=== PATIENT | male | born 1965 | race Caucasian/White ===

== ENCOUNTER 2017-05-02 19:00 | Emergency (ER) | payer MEDICARE ==
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
[2017-05-02 23:44] VITALS: BP 139/88; PULSE 82; RESP 18; TEMP 98.1
== END 2017-05-02 23:44 | disposition home or self-care (01) ==
LOC: EC 19:00
DX: F41.0 Panic disorder [episodic paroxysmal anxiety] (principal); F32.9 Major depressive disorder, single episode, unspecified; Z88.0 Allergy status to penicillin; Z88.2 Allergy status to sulfonamides; Z88.8 Allergy status to other drugs, medicaments and biological substances; Z79.899 Other long term (current) drug therapy
CPT/HCPCS: 80306; 82075; 99285

== ENCOUNTER 2017-10-05 20:24 | Emergency (ER) | payer MEDICARE ==
--- NOTE | 2017-10-05 20:26 | ED ---
General Adult HPI - General Stated complaint: Syncope Time Seen by Provider: 10/05/17 20:25 - Related Data Home Medications Medication Instructions Recorded Confirmed DULoxetine HCL [Cymbalta] 30 mg PO HS 05/02/17 05/02/17 DULoxetine HCL [Cymbalta] 60 mg PO QAM 05/02/17 05/02/17 clonazePAM [KlonoPIN] 1 mg PO DAILY PRN 05/02/17 05/02/17 clonazePAM [KlonoPIN] 1 mg PO TID 05/02/17 05/02/17 Allergies Allergy/AdvReac Type Severity Reaction Status Date / Time citalopram [From Celexa] Allergy Swelling Verified 05/02/17 19:38 Penicillins Allergy Anaphylaxis Verified 05/02/17 19:38 Sulfa (Sulfonamide Allergy Anaphylaxis Verified 05/02/17 19:38 Antibiotics) olanzapine [From Zyprexa] AdvReac Constipatio Verified 05/02/17 19:38 n Review of Systems ROS Statement: Those systems with pertinent positive or pertinent negative responses have been documented in the HPI. ROS Other: All systems not noted in ROS Statement are negative. Past Medical History Additional Past Medical History / Comment(s): insomnia History of Any Multi-Drug Resistant Organisms: None Reported Additional Past Surgical History / Comment(s): wisdom teeth Past Psychological History: Anxiety, Depression, PTSD Smoking Status: Never smoker Past Alcohol Use History: Rare Past Drug Use History: None Reported Disposition Referrals: Genaro Bedolla MD [Primary Care Provider] - 1-2 days
--- NOTE | 2017-10-05 21:33 | XR ---
EXAMINATION TYPE: XR chest 1V portable DATE OF EXAM: 10/05/2017 COMPARISON: NONE HISTORY: Syncope TECHNIQUE: Single frontal view of the chest is obtained. FINDINGS: Heart and mediastinum are normal. There is small linear density at the left lung base. Yaron gs are clear of consolidation. There is no heart failure. IMPRESSION: Subsegmental atelectasis at the left lung base. Normal heart.
[2017-10-05 21:43] LABS: Basophils % (A) 1 %; CH 31.8; CHCM 34.9; Eosinophils # (A) 0.1 k/uL (0-0.7); Eosinophils % (A) 3 %; HCT 43.4 % (39.0-53.0); HDW 3.07; HGB 14.4 gm/dL (13.0-17.5); Luc # (Auto) 0.05; Luc % (Auto) 1; Lymphocytes # (A) 1.1 k/uL (1.0-4.8); Lymphocytes % (A) 24 %; MCH 30.5 pg (25.0-35.0); MCHC 33.2 g/dL (31.0-37.0); MCV 91.8 fL (80.0-100.0); Mean Platelet Volume 7.2; Monocytes # (A) 0.3 k/uL (0-1.0); Monocytes % (A) 7 %; Neutrophils # (A) 2.9 k/uL (1.3-7.7); Neutrophils % (A) 65 %; RBC 4.73 m/uL (4.30-5.90); RDW 15.5 % (11.5-15.5); WBC 4.5 k/uL (3.8-10.6); WBC (Perox) 4.36
[2017-10-05 21:45] LABS: ALT 36 U/L (21-72); AST 19 U/L (17-59); Alkaline Phosphatase 89 U/L (38-126); Anion Gap 7 mmol/L; Blood Urea Nitrogen 17 mg/dL (9-20); Calcium 9.1 mg/dL (8.4-10.2); Carbon Dioxide 27 mmol/L (22-30); Chloride 105 mmol/L (98-107); Glucose 137 mg/dL (74-99); Non-African American GFR(MDRD) >60 (>60 ml/min/1.73 sqM); Potassium 4.3 mmol/L (3.5-5.1); Sodium 139 mmol/L (137-145); Total Bilirubin 1.7 mg/dL (0.2-1.3); Total Protein 6.9 g/dL (6.3-8.2)
[2017-10-05 21:48] LABS: Creatine Kinase 39 U/L (55-170)
[2017-10-05 21:51] LABS: Partial Thromboplastin Time 24.1 sec (22.0-30.0); Prothrombin Time 10.4 sec (9.0-12.0)
[2017-10-05 22:02] LABS: Creatine Kinase MB 0.2 ng/mL (0.0-2.4); Troponin I <0.012 ng/mL (0.000-0.034)
[2017-10-05 22:23] VITALS: BP 147/87; TEMP 97.8
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
[2017-10-05 22:54] VITALS: PULSE 102; RESP 20
== END 2017-10-05 22:53 | disposition home or self-care (01) ==
LOC: EC 20:24
DX: F43.20 Adjustment disorder, unspecified (principal); F32.9 Major depressive disorder, single episode, unspecified; F41.9 Anxiety disorder, unspecified; Z88.0 Allergy status to penicillin; Z88.2 Allergy status to sulfonamides; Z88.8 Allergy status to other drugs, medicaments and biological substances; Z79.899 Other long term (current) drug therapy
CPT/HCPCS: 36415; 71010; 80053; 82550; 82553; 84484; 85025; 85379; 85610; 85730; 93005; 99284

== ENCOUNTER → 2019-02-15 | Outpatient (CLI) | payer MEDICARE ==
--- NOTE | 2019-02-16 10:46 | ECHOF ---
Referral Reason:R01.1 Cardiac murmur, unspecified MEASUREMENTS -------- HEIGHT: 167.6 cm WEIGHT: 90.7 kg BP: RVIDd: 3.0 cm (< 3.3) IVSd: 1.2 cm (0.6 - 1.1) LVIDd: 2.8 cm (3.9 - 5.3) LVPWd: 1.3 cm (0.6 - 1.1) IVSs: 1.5 cm LVIDs: 2.0 cm LVPWs: 1.4 cm LAESV Index (A-L): 15.86 ml/m Ao Diam: 3.0 cm (2.0 - 3.7) AV Cusp: 1.8 cm (1.5 - 2.6) LA Diam: 3.6 cm (2.7 - 3.8) MV EXCURSION: 12.690 mm (> 18.000) MV EF SLOPE: 54 mm/s (70 - 150) EPSS: 1.0 cm MV E Navin: 0.76 m/s MV DecT: 234 ms MV A Navin: 1.27 m/s MV E/A Ratio: 0.60 RAP: 5.00 mmHg RVSP: 26.51 mmHg FINDINGS -------- Sinus rhythm. This was a technically adequate study. The left ventricular size is normal. There is mild concentric left ventricular hypertrophy. Overa ll left ventricular systolic function is normal with, an EF between 55 - 60 %. The right ventricle is normal in size and function. Normal LA size by volume 22+/-6 ml/m2. The right atrium is normal in size. Aortic valve is trileaflet and is mildly thickened. There is no evidence of aortic regurgitation. There is no evidence of aortic stenosis. The mitral valve leaflets are mildly thickened. There is trace to mild mitral regurgitation. Trace tricuspid regurgitation present. Right ventricular systolic pressure is normal at < 35 mmHg. There is no evidence of pulmonary hypertension. Trace/mild (physiologic) pulmonic regurgitation. The aortic root size is normal. Normal inferior vena cava with normal inspiratory collapse consistent with estimated right atrial pre ssure of 5 mmHg. There is no pericardial effusion. CONCLUSIONS -------- 1. Sinus rhythm. 2. This was a technically adequate study. 3. The left ventricular size is normal. 4. There is mild concentric left ventricular hypertrophy. 5. Overall left ventricular systolic function is normal with, an EF between 55 - 60 %. 6. Normal LA size by volume 22+/-6 ml/m2. 7. Aortic valve is trileaflet and is mildly thickened. 8. The mitral valve leaflets are mildly thickened. 9. There is trace to mild mitral regurgitation. 10. Trace tricuspid regurgitation present. 11. Right ventricular systolic pressure is normal at < 35 mmHg. 12. There is no evidence of pulmonary hypertension. 13. Trace/mild (physiologic) pulmonic regurgitation. 14. The aortic root size is normal. 15. There is no pericardial effusion. SUPERVISOR [employer]PERATION: Darius Richey RDCS
== END ==
LOC: RADECHMAIN 14:57
PROVIDERS: ATTEND Family Medicine
DX: I34.0 Nonrheumatic mitral (valve) insufficiency (principal); I37.1 Nonrheumatic pulmonary valve insufficiency
CPT/HCPCS: 93306

== ENCOUNTER → 2019-11-03 | Outpatient (CLI) | payer MEDICARE ==
--- NOTE | 2019-11-03 14:26 | EST ---
EXERCISE STRESS DATE OF SERVICE: 11/03/2019 AGE: 53 SEX: Male HT: 5'6" WT: 200 pounds PROTOCOL: Joon STAGE: II DURATION OF EXERCISE: 4 minutes HEART RATE REST: 106 BLOOD PRESSURE REST: 117/84 MAXIMUM HEART RATE ACHIEVED: 150 MAXIMUM BLOOD PRESSURE: 167/78 85% MPHR: 142 100% MPHR: 167 METS: 5.4 INDICATIONS: Chest pain. CLINICAL INFORMATION: STRESS DATA: Heart rate is 106, pressure is 117/84 mmHg. Baseline EKG showed sinus rhythm. The patient exercised on the treadmill according to Joon protocol for a total of 4 minutes and achieved 5.4 METs. The max heart rate was 150 which is about 90% of maximum predicted heart rate. Maximum blood pressure was 167/78 mmHg. Clinically the patient did not have any symptoms and the EKG did not show any significant ST or T-wave abnormalities concerning for ischemia. CONCLUSION: 1. Average exercise tolerance. 2. Normal EKG in response to exercise. 3. Essentially normal stress test for the patient. MMODL / IJN: [id number] /
== END | disposition home or self-care (01) ==
LOC: RADNMMAIN 10:42
PROVIDERS: ATTEND Family Medicine
DX: R07.9 Chest pain, unspecified (principal)
CPT/HCPCS: 93017

== ENCOUNTER 2020-10-07 20:14 | Emergency (ER) | payer MEDICARE ==
[2020-10-07 21:17] LABS: Amphetamine Screen,Urine Not Detected (NotDetected); Barbiturate Screen,Urine Not Detected (NotDetected); Benzodiazepines Screen,Urine Not Detected (NotDetected); Cocaine Screen,Urine Not Detected (NotDetected); Methadone Screen, Urine Not Detected (NotDetected); Opiate Screen,Urine Not Detected (NotDetected); Oxycodone Screen, Urine Not Detected (NotDetected); Phencyclidine Screen,Urine Not Detected (NotDetected); Tricyclic Antidepressant,Urine Not Detected (NotDetected); Urn Cannabinoid Scrn Not Detected (NotDetected)
[2020-10-07] MEDS ORDERED: HALOPERIDOL LACTATE 5 MG/ML 1 ML VIAL IM STA (21:28)
--- NOTE | 2020-10-07 21:54 | ED ---
General Adult HPI - General Source: police, EMS, RN notes reviewed, old records reviewed Mode of arrival: EMS <Tony Garsia - Last Filed: 10/08/20 03:14> <Genaro Dominguez - Last Filed: 10/08/20 07:33> - General Chief complaint: Psychiatric Symptoms Stated complaint: Mental Health Time Seen by Provider: 10/07/20 20:28 - History of Present Illness Initial comments: 54-year-old male patient to ED for suicidal ideations. Patient reports that this a difficult day for him because his anniversary of a loved one and also a girlfriend recently broke up with him. Reports drinking. 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 Denies any other acute complaints. Denies any actions to hurt himself, denies any thoughts of hurting others. Systemic: Pt denies fatigue, fever/chills, rash. Pt denies weakness, night sweats, weight loss. Neuro: Pt denies headache, visual disturbances, syncope or pre-syncope. HEENT: Pt denies ocular discharge or irritation, otalgia, rhinorrhea, pharyngitis or notable lymphadenopathy. Cardiopulmonary: Pt denies chest pain, SOB, heart palpitations, dyspnea on exertion. Abdominal/GI: Pt denies abdominal pain, n/v/d. : Pt denies dysuria, burning w/ urination, frequency/urgency. Denies new onset urinary or bowel incontinence. MSK: Pt denies myalgia, loss of strength or function in extremities. Neuro: Pt denies new onset weakness, paresthesias. (Tony Garsia) - Related Data Home Medications Medication Instructions Recorded Confirmed Ergocalciferol (Vitamin D2) 50,000 unit PO Q7D 10/07/20 10/07/20 [Drisdol] Metoprolol Succinate (ER) [Toprol 25 mg PO DAILY 10/07/20 10/07/20 Xl] Prazosin HCl 5 mg PO DAILY 10/07/20 10/07/20 traZODone HCL [Desyrel] 50 mg PO HS 10/07/20 10/07/20 Allergies Allergy/AdvReac Type Severity Reaction Status Date / Time citalopram [From Celexa] Allergy Swelling Verified 10/05/17 20:56 Penicillins Allergy Anaphylaxis Verified 10/05/17 20:56 Sulfa (Sulfonamide Allergy Anaphylaxis Verified 10/05/17 20:56 Antibiotics) olanzapine [From Zyprexa] AdvReac Constipatio Verified 10/05/17 20:56 n Review of Systems ROS Other: All systems not noted in ROS Statement are negative. <TheajohnnyTony - Last Filed: 10/08/20 03:14> ROS Other: All systems not noted in ROS Statement are negative. <Genaro Dominguez - Last Filed: 10/08/20 07:33> ROS Statement: Those systems with pertinent positive or pertinent negative responses have been documented in the HPI. Past Medical History Past Medical History: Hyperlipidemia Additional Past Medical History / Comment(s): insomnia History of Any Multi-Drug Resistant Organisms: None Reported Additional Past Surgical History / Comment(s): wisdom teeth Past Psychological History: Anxiety, Depression, PTSD Smoking Status: Never smoker Past Alcohol Use History: Rare Past Drug Use History: None Reported <Tony Garsia - Last Filed: 10/08/20 03:14> General Exam <Tony Garsia - Last Filed: 10/08/20 03:14> - General Exam Comments Initial Comments: Constitutional: NAD, AOX3, Pt has pleasant affect. HEENT: NC/AT, trachea midline, neck supple, no lymphadenopathy. External ears appear normal, without discharge. Mucous membranes moist. Eyes PERRLA, EOM intact. There is no scleral icterus. No pallor noted. Cardiopulmonary: RRR, no murmurs, rubs or gallops, no JVD noted. Lungs CTAB in anterior and posterior alcantara. No peripheral edema. Abdominal exam: Abdomen soft and non-distended. Abdomen non-tender to palpation in all 4 quadrants. Bowel sounds active in LLQ. No hepatosplenomegaly. No ecchymosis Neuro: CN II-XII grossly intact. No nuchal rigidity. MSK: Full active ROM in upper and lower extremities. (Tony Garsia) Course Vital Signs 10/07/20 20:37 Temperature 98.8 F Pulse Rate 99 Respiratory 20 Rate Blood Pressure 138/80 O2 Sat by Pulse 97 Oximetry Procedures - Restraint - Face to Face Restraint Occurrence 1 Patient's Immediate Situation: Endangers others' safety, Endangers staff safety, Violent behavior Patient's Reaction to the Intervention: Aggressive, Combative Patient's Medical & Behavioral Condition: Awake, Alert, Anxious Need to Continue or Terminate Restraint or Seclusion: Continue <Tony Garsia - Last Filed: 10/08/20 03:14> Medical Decision Making <Tony Garsia - Last Filed: 10/08/20 03:14> - Medical Decision Making 54 male patient to ED for psychiatric evaluation. Patient is intoxicated, signed out to Dr. Dominguez pending EPS evaluation. Patient did become aggressive and threatening with staff and was briefly restrained, is now cooperative. (Tony Garsia) - Lab Data Lab Results 10/07/20 Range/Units 20:44 Urine Opiates Screen Not Detected (NotDetected) Ur Oxycodone Screen Not Detected (NotDetected) Urine Methadone Screen Not Detected (NotDetected) Ur Propoxyphene Screen Not Detected (NotDetected) Ur Barbiturates Screen Not Detected (NotDetected) U Tricyclic Antidepress Not Detected (NotDetected) Ur Phencyclidine Scrn Not Detected (NotDetected) Ur Amphetamines Screen Not Detected (NotDetected) U Methamphetamines Scrn Not Detected (NotDetected) U Benzodiazepines Scrn Not Detected (NotDetected) Urine Cocaine Screen Not Detected (NotDetected) U Marijuana (THC) Screen Not Detected (NotDetected) Disposition <Tony Garsia - Last Filed: 10/08/20 03:14> Is patient prescribed a controlled substance at d/c from ED?: No <Genaro Dominguez - Last Filed: 10/08/20 07:33> Clinical Impression: Depression, Alcohol abuse Disposition: HOME SELF-CARE Condition: Good Instructions (If sedation given, give patient instructions): Abuse of Alcohol (ED), Depression (ED) Referrals: Mundo William DO [Primary Care Provider] - 1-2 days
[2020-10-08] MEDS ORDERED: PRAZOSIN 1 MG CAP PO STA (00:33)
[2020-10-08] MEDS ORDERED: traZODone HCL 50 MG TAB PO SCH (00:45)
[2020-10-08 07:45] VITALS: BP 120/59; PULSE 90; RESP 18; TEMP 97.9
== END 2020-10-08 07:34 | disposition home or self-care (01) ==
LOC: EC 20:14
DX: F10.10 Alcohol abuse, uncomplicated (principal); F32.9 Major depressive disorder, single episode, unspecified; F41.9 Anxiety disorder, unspecified; Z79.899 Other long term (current) drug therapy; Z88.0 Allergy status to penicillin; Z88.2 Allergy status to sulfonamides; Z88.8 Allergy status to other drugs, medicaments and biological substances; Y90.9 Presence of alcohol in blood, level not specified
CPT/HCPCS: 99285 ×2; 96372 ×2; 82075; 80306; J1630

== ENCOUNTER 2023-03-05 06:34 | Day surgery (SDC) | payer MEDICARE, OTHER ==
[2023-03-02 12:55] VITALS: BMI 31.1
[~2023-03-05 06:34] MED LIST: LACTATED RINGERS 1,000 ML IV SCH
[2023-03-05 06:58] VITALS: TEMP 97.1
[2023-03-05 07:08] LABS: Glucose,Whole Blood 130 mg/dL (70-110)
[2023-03-05] MEDS ORDERED: PROPOFOL 10 MG/ML 20 ML VIAL IV ONE (07:35)
[2023-03-05 08:28] VITALS: RESP 18
[2023-03-05 08:32] VITALS: BP 128/86; PULSE 80
[2023-03-05 08:39] LABS: Basophils % (A) 0 %; Eosinophils # (A) 0.1 k/uL (0-0.7); Eosinophils % (A) 3 %; HCT 41.6 % (39.0-53.0); HGB 14.9 gm/dL (13.0-17.5); Hyperchromasia Slight; Lymphocytes # (A) 0.8 k/uL (1.0-4.8); Lymphocytes % (A) 28 %; MCH 30.8 pg (25.0-35.0); MCHC 35.8 g/dL (31.0-37.0); MCV 86.2 fL (80.0-100.0); Mean Platelet Volume 6.8; Monocytes # (A) 0.2 k/uL (0-1.0); Monocytes % (A) 8 %; Neutrophils # (A) 1.7 k/uL (1.3-7.7); Neutrophils % (A) 59 %; RBC 4.83 m/uL (4.30-5.90); RDW 13.6 % (11.5-15.5); Reticulocyte % 2.6 % (0.5-2.0); WBC 2.8 k/uL (3.8-10.6)
[2023-03-05 09:32] LABS: Platelet Count 84 k/uL (150-450)
--- NOTE | 2023-03-05 09:43 | OP ---
OPERATIVE REPORT DATE OF SERVICE : PREOPERATIVE DIAGNOSES:: Bicytopenia with leukopenia, thrombocytopenia. POSTOPERATIVE DIAGNOSES:: Bicytopenia with leukopenia, thrombocytopenia. OPERATION:: Bone marrow biopsy with local and general sedation. ESTIMATED BLOOD LOSS:: Less than 1 mL. SPECIMEN TAKEN:: NARRATIVE:: Mr. Ibarra was placed in the left lateral decubitus position and was administered IV general anesthetic. The right posterior iliac crest was palpated. The area of the skin was sterilized with 3 swabs of Betadine and 3 swabs of alcohol. The periosteum was then anesthetized locally with 10 mL of 1% lidocaine. The periosteum and then bone marrow was then accessed through a 4-inch Jamshidi needle. 17 mL of aspirate was obtained. Initial pass resulted in a small 0.2 cm core biopsy. An additional pass was made obtaining a larger 0.5 cm core biopsy. Aspirate and core biopsy sample will be sent for morphology, flow cytometry, FISH, cytogenetics, and next-generation sequencing. Mr. Ibarra tolerated the procedure well with less than 1 mL of blood loss. He returned to the [facility] Unit in stable condition. He will follow up on the testing outpatient. MMODL / IJN: [id number] /
== END 2023-03-05 09:00 | disposition home or self-care (01) ==
LOC: OR 06:34
PROVIDERS: ATTEND Internal Medicine Hematology & Oncology
DX: D72.819 Decreased white blood cell count, unspecified (principal); D69.6 Thrombocytopenia, unspecified; E11.9 Type 2 diabetes mellitus without complications; I10 Essential (primary) hypertension; E78.5 Hyperlipidemia, unspecified; K21.9 Gastro-esophageal reflux disease without esophagitis; Z79.84 Long term (current) use of oral hypoglycemic drugs; Z79.899 Other long term (current) drug therapy; Z88.2 Allergy status to sulfonamides; Z88.8 Allergy status to other drugs, medicaments and biological substances
CPT/HCPCS: 85025; 85045; 38222; J2704

== ENCOUNTER → 2023-04-05 | Outpatient (CLI) | payer MEDICARE, OTHER ==
[~2023-04-05] MED LIST changes: +COSYNTROPIN 0.25 MG VIAL IVP NR; -LACTATED RINGERS 1,000 ML IV SCH; +SODIUM CHLORIDE 0.9% 500 ML 500 ML in EMPTY BAG 1 BAG IV PRN
[2023-04-05 12:28] VITALS: BP 161/89; PULSE 101; RESP 16; TEMP 97.6
== END ==
LOC: PROCWHC3 11:48
PROVIDERS: ATTEND Family Medicine
DX: R53.83 Other fatigue (principal)
CPT/HCPCS: 82533; 82024; 96374; J0834; 36591

== ENCOUNTER → 2023-06-09 | Outpatient (CLI) | payer MEDICARE, OTHER ==
--- NOTE | 2023-06-09 12:45 | XR ---
EXAMINATION TYPE: XR chest 2V DATE OF EXAM: 06/09/2023 12:37 PM COMPARISON: Chest radiographs from 10/05/2017 TECHNIQUE: XR chest 2V Frontal and lateral views of the chest. CLINICAL INDICATION:Male, 57 years old with history of R09.89; FINDINGS: Lungs/Pleura: There is no evidence of pleural effusion, focal consolidation, or pneumothorax. Pulmonary vascularity: Unremarkable. Heart/mediastinum: Cardiomediastinal silhouette is unremarkable. Musculoskeletal: No acute osseous pathology. Mild multilevel degenerative disc disease of the thoraci c spine. IMPRESSION: No acute cardiopulmonary disease/process.
== END | disposition home or self-care (01) ==
LOC: RADXRMAIN 12:22
PROVIDERS: ATTEND Family Medicine
DX: R09.89 Other specified symptoms and signs involving the circulatory and respiratory systems (principal)
CPT/HCPCS: 71046